=== PATIENT | female | born 1950 | race Asian ===

== ENCOUNTER 2020-09-24 06:34 | Day surgery (SDC) | payer MEDICAID, SELFPAY ==
[~2020-09-24] VITALS: Ht 152.4 cm; Wt 63.5 kg
[2020-09-24] MEDS ORDERED: MEPERIDINE 100 MG INJ. 100 MG/ML VIAL ONE (07:38)
[2020-09-24] MEDS ORDERED: SIMETHICONE 40 MG/0.6 ML ML ONE (07:38)
[2020-09-24] MEDS ORDERED: MIDAZOLAM HCL 5 MG/5 ML VIAL ONE (07:39)
[2020-09-24 10:34] VITALS: BP_SYST 124
== END 2020-09-24 09:45 | disposition home or self-care (01) ==
LOC: SMU 06:34 → SDS 06:34
PROVIDERS: ATTEND Internal Medicine Gastroenterology
DX: R19.5 Other fecal abnormalities (principal); D12.2 Benign neoplasm of ascending colon; D12.4 Benign neoplasm of descending colon; D12.7 Benign neoplasm of rectosigmoid junction; D12.5 Benign neoplasm of sigmoid colon; K57.32 Diverticulitis of large intestine without perforation or abscess without bleeding; K64.8 Other hemorrhoids; I10 Essential (primary) hypertension; K57.30 Diverticulosis of large intestine without perforation or abscess without bleeding; Z79.899 Other long term (current) drug therapy; Z20.822 Contact with and (suspected) exposure to COVID-19
CPT/HCPCS: 45380; 45385; 88305; 99152; 99153; G0378; J2175; J2250; U0003; 45384

== ENCOUNTER 2023-03-30 06:15 | Day surgery (SDC) | payer MEDICAID ==
[~2023-03-30] VITALS: Ht 157.5 cm; Wt 61.2 kg
[2023-03-30] MEDS ORDERED: MIDAZOLAM HCL 5 MG/5 ML VIAL ONE (07:29)
[2023-03-30] MEDS ORDERED: fentaNYL CITRATE/PF 100 MCG/2 ML AMP ONE (07:35)
[2023-03-30] MEDS ORDERED: SIMETHICONE 40 MG/0.6 ML ML ONE (07:37)
[2023-03-30 11:06] VITALS: O2SAT 97
[2023-03-30 13:47] VITALS: BP_SYST 119; PULSE 63; RESP 16
== END 2023-03-30 09:13 | disposition home or self-care (01) ==
LOC: SDS 06:15 → SMU 06:16 → SDS 09:13
PROVIDERS: ATTEND Internal Medicine Gastroenterology
DX: Z12.11 Encounter for screening for malignant neoplasm of colon (principal); D12.5 Benign neoplasm of sigmoid colon; D12.2 Benign neoplasm of ascending colon; K57.30 Diverticulosis of large intestine without perforation or abscess without bleeding; K64.8 Other hemorrhoids; Z80.0 Family history of malignant neoplasm of digestive organs; Z86.010 Personal history of colon polyps; I10 Essential (primary) hypertension; Z79.899 Other long term (current) drug therapy
CPT/HCPCS: 45380; 45385; 88305; 99152; G0378; J2250; J3010